=== PATIENT | female | born 1990 | race Caucasian/White ===

== ENCOUNTER 2016-08-26 10:48 | Inpatient (IN) | payer OTHER ==
[2016-08-26 11:26] LABS: HEMOGLOBIN 8.5 gm/dl (12.3-15.3); RED BLOOD COUNT 3.36 M/UL (4.00-5.10); WHITE BLOOD COUNT 6.9 K/UL (4.5-11.0)
[2016-08-27 03:36] LABS: HEMOGLOBIN 7.7 gm/dl (12.3-15.3)
== END 2016-08-28 14:24 | disposition home or self-care (01) | DRG 766 ==
LOC: GENOP 10:48 → OB 11:28
PROVIDERS: Obstetrics & Gynecology; ADMIT Obstetrics & Gynecology
PROC: 3E0R3CZ (ICD-10-PCS; 2016-08-26)
PROC: 10D00Z1 Extraction of Products of Conception, Low, Open Approach (ICD-10-PCS; principal; 2016-08-26 13:04)
PROC: 3E0234Z Introduction of Serum, Toxoid and Vaccine into Muscle, Percutaneous Approach (ICD-10-PCS; 2016-08-28)
DX: O34.219 Maternal care for unspecified type scar from previous cesarean delivery (principal); N85.8 Other specified noninflammatory disorders of uterus; O24.420 Gestational diabetes mellitus in childbirth, diet controlled; Z3A.39 39 weeks gestation of pregnancy; Z37.0 Single live birth; O99.283 Endocrine, nutritional and metabolic diseases complicating pregnancy, third trimester; E07.9 Disorder of thyroid, unspecified; O99.02 Anemia complicating childbirth; D64.9 Anemia, unspecified; O99.214 Obesity complicating childbirth; E66.9 Obesity, unspecified; Z68.39 Body mass index [BMI] 39.0-39.9, adult; O99.89 Other specified diseases and conditions complicating pregnancy, childbirth and the puerperium; M41.9 Scoliosis, unspecified; Z23 Encounter for immunization; Z87.440 Personal history of urinary (tract) infections; Z79.899 Other long term (current) drug therapy; Z90.49 Acquired absence of other specified parts of digestive tract; Z98.890 Other specified postprocedural states; Z83.3 Family history of diabetes mellitus; Z82.49 Family history of ischemic heart disease and other diseases of the circulatory system
CPT/HCPCS: 36415; 81001; 82800; 82962; 85014; 85018; 85025; 90707; C9113; J0690; J2274; J2300; J2405; J2590; J2765; J3010; J7050; J7120; Q0163

== ENCOUNTER 2021-02-03 20:35 | Emergency (ER) | payer OTHER ==
[2021-02-03 21:59] LABS: HEMOGLOBIN 10.7 gm/dl (12.3-15.3); RED BLOOD COUNT 3.62 M/UL (4.00-5.10); WHITE BLOOD COUNT 6.2 K/UL (4.5-11.0)
[2021-02-03 22:19] LABS: BUN/CREATININE RATIO 8 (0-10)
[2021-02-04] MEDS ORDERED: ZOFRAN ODT 4 MG4 MG SL (00:33)
== END 2021-02-04 01:20 | disposition home or self-care (01) ==
LOC: ER1 20:35
PROVIDERS: Physician Assistant Medical
DX: O98.513 Other viral diseases complicating pregnancy, third trimester (principal); U07.1 COVID-19; O99.283 Endocrine, nutritional and metabolic diseases complicating pregnancy, third trimester; E03.9 Hypothyroidism, unspecified; Z90.49 Acquired absence of other specified parts of digestive tract; Z3A.33 33 weeks gestation of pregnancy
CPT/HCPCS: 80053; 81001; 85025; 99283; U0002

== ENCOUNTER 2021-02-08 21:22 | Outpatient (CLI) | payer OTHER ==
[~2021-02-08 21:22] MED LIST: ZOFRAN ODT 4 MG4 MG SL
== END 2021-02-08 22:40 | disposition home or self-care (01) ==
LOC: GENOP 21:22
DX: O36.8130 Decreased fetal movements, third trimester, not applicable or unspecified (principal); O98.513 Other viral diseases complicating pregnancy, third trimester; U07.1 COVID-19; O99.283 Endocrine, nutritional and metabolic diseases complicating pregnancy, third trimester; E07.9 Disorder of thyroid, unspecified; Z79.899 Other long term (current) drug therapy; Z3A.33 33 weeks gestation of pregnancy
CPT/HCPCS: 59025

== ENCOUNTER 2021-02-20 18:15 | Outpatient (CLI) | payer OTHER | END 2021-02-20 23:05 | disposition home or self-care (01) | LOC: GENOP 18:15 | DX: O99.891 Other specified diseases and conditions complicating pregnancy (principal); M54.5 Low back pain; R10.9 Unspecified abdominal pain; O32.1XX0 Maternal care for breech presentation, not applicable or unspecified; O99.283 Endocrine, nutritional and metabolic diseases complicating pregnancy, third trimester; E03.9 Hypothyroidism, unspecified; Z3A.35 35 weeks gestation of pregnancy | CPT/HCPCS: 59025; 81001; 96360; 96361; 96367; J0696 ==

== ENCOUNTER 2021-03-19 05:26 | Inpatient (IN) | payer OTHER ==
[~2021-03-19] VITALS: Ht 162.6 cm; Wt 112.5 kg
[2021-03-19] MEDS ORDERED: PRENATABS FA T1 EACH PO (06:15)
[2021-03-19] MEDS ORDERED: LEVOTHYROXINE100 MCG PO (06:15)
[2021-03-19 06:18] LABS: HEMOGLOBIN 9.8 gm/dl (12.3-15.3); RED BLOOD COUNT 3.42 M/UL (4.00-5.10); WHITE BLOOD COUNT 6.9 K/UL (4.5-11.0)
[2021-03-19] MEDS ORDERED: DOCUSATE SODIU100 MG PO (10:15)
[2021-03-19] MEDS ORDERED: HYDROCODONE-AC1 EAC1 PO (10:15)
[2021-03-19] MEDS ORDERED: IBUPROFEN800 MG PO (10:15)
[2021-03-20 06:55] LABS: HEMOGLOBIN 8.7 gm/dl (12.3-15.3)
[2021-03-21] MEDS ORDERED: FERROUS SULFAT325 M2 PO (12:42)
== END 2021-03-21 13:58 | disposition home or self-care (01) | DRG 787 ==
LOC: OB 05:26
PROVIDERS: Obstetrics & Gynecology; ADMIT Obstetrics & Gynecology
PROC: 4A1HXCZ Monitoring of Products of Conception, Cardiac Rate, External Approach (ICD-10-PCS; 2021-03-19)
PROC: 0HB7XZZ Excision of Abdomen Skin, External Approach (ICD-10-PCS; 2021-03-19)
PROC: 10D00Z1 Extraction of Products of Conception, Low, Open Approach (ICD-10-PCS; principal; 2021-03-19 10:00)
DX: O34.211 Maternal care for low transverse scar from previous cesarean delivery (principal); O99.354 Diseases of the nervous system complicating childbirth; Z3A.39 39 weeks gestation of pregnancy; Z20.822 Contact with and (suspected) exposure to COVID-19; Z37.0 Single live birth; O99.284 Endocrine, nutritional and metabolic diseases complicating childbirth; E03.9 Hypothyroidism, unspecified; O99.214 Obesity complicating childbirth; M41.9 Scoliosis, unspecified; E66.01 Morbid (severe) obesity due to excess calories; Z83.3 Family history of diabetes mellitus; Z82.49 Family history of ischemic heart disease and other diseases of the circulatory system; Z90.49 Acquired absence of other specified parts of digestive tract
CPT/HCPCS: 36415; 81001; 82800; 85014; 85018; 85025; C9113; J0690; J1200; J2274; J2405; J2590; J7120